=== PATIENT | male | born 1985 | race Asian ===

== ENCOUNTER 2017-12-18 00:34 | Emergency (ER) | payer OTHER ==
[~2017-12-18] VITALS: Ht 182.9 cm; Wt 89.0 kg
[2017-12-18 00:59] VITALS: BP 117/62
== END 2017-12-18 02:35 | disposition home or self-care (01) ==
LOC: ED 00:34
DX: R21 Rash and other nonspecific skin eruption (principal)
CPT/HCPCS: J7512; Q0163

== ENCOUNTER → 2017-12-19 | Outpatient (CLI) | payer OTHER ==
[2017-12-19 17:17] LABS: ALBUMIN 3.9 g/dL (3.4-5.0); ALKALINE PHOSPHATASE 117 U/L (46-116); ALT/SGPT 36 U/L (16-63); AST/SGOT 23 U/L (15-37); BILIRUBIN TOTAL 0.3 mg/dL (0.20-1.00); CALCIUM 8.7 mg/dL (8.5-10.1); CARBON DIOXIDE 29.4 mmol/L (21-32); CHLORIDE SERUM 105 mmol/L (98-107); CREATININE SERUM 1.3 mg/dL (0.7-1.3); GFR1 > 60 mL/min; GLUCOSE SERUM 91 mg/dL (74-106); HDL CHOLESTEROL 37 mg/dL (40-60); POTASSIUM SERUM 3.8 mmol/L (3.5-5.1); SODIUM SERUM 141 mmol/L (136-145); TOTAL PROTEIN, SERUM 7.5 g/dL (6.4-8.2)
[2017-12-19 17:32] LABS: CHOLESTEROL 207 mg/dL (<200); CHOLESTEROL/HDL RATIO 5.6; TRIGLYCERIDES 289 mg/dL (<150)
== END | disposition home or self-care (01) ==
LOC: LB 15:50 → RD 15:50
PROVIDERS: Student in an Organized Health Care Education/Training Program
DX: M54.5 Low back pain (principal); R21 Rash and other nonspecific skin eruption; Z76.89 Persons encountering health services in other specified circumstances
CPT/HCPCS: 86003

== ENCOUNTER → 2018-04-07 | Outpatient (CLI) | payer OTHER | END | disposition home or self-care (01) | LOC: RD 18:02 | DX: M25.511 Pain in right shoulder (principal) ==

== ENCOUNTER → 2018-04-10 | Outpatient (CLI) | payer OTHER | END | disposition home or self-care (01) | LOC: MI 17:20 | PROC: BP38ZZZ Magnetic Resonance Imaging (MRI) of Right Shoulder (ICD-10-PCS; principal; 2018-04-10) | DX: M25.511 Pain in right shoulder (principal) ==